=== PATIENT | male | born 1955 | race Caucasian/White ===

== ENCOUNTER 2019-06-26 12:51 | Inpatient (IN) | payer OTHER ==
[2019-06-26] MEDS ORDERED: RAPID SEQUENCE INTUBATION KIT NR ONE ×2 (12:54→12:56)
[2019-06-26] MEDS ORDERED: MIDAZOLAM 100MG/100ML DRIP - DO NOT USE FOR BILLING ONE (13:00)
[2019-06-26 13:10] VITALS: BMI 35.5
[2019-06-26] MEDS ORDERED: ETOMIDATE 40 MG/20 ML VIAL IVPUSH ONE (13:20)
[2019-06-26] MEDS ORDERED: ROCURONIUM BROMIDE 50 MG/5 ML VIAL IV ONE (13:21)
[2019-06-26] MEDS ORDERED: SUCCINYLCHOLINE CHLORIDE 200 MG/10 ML VIAL IVPUSH ONE (13:21)
[2019-06-26] MEDS: MIDAZOLAM 100 MG in SODIUM CHLORIDE 100 ML IVPB SCH (13:30)
[2019-06-26 13:40] LABS: BASO % 0.4 % (0-2.0); HEMATOCRIT 39.4 % (35.4-49); HEMOGLOBIN 12.6 GM/dL (11.7-16.9); MCH 23.4 pg (25.7-33.7); MCHC 31.9 g/dl (32.0-35.9); MEAN CELL VOLUME 73.3 fl (80-96); MEAN PLT VOLUME 8.5 fl (7.5-11.1); MONO % 5.5 % (3.8-10.2); NEUT % 83.1 % (42.8-82.8); PLATELET COUNT 330 K/MM3 (134-434); RBC 5.37 M/mm3 (4.00-5.60); RDW 15.6 % (11.9-15.9); WHITE BLOOD COUNT 7.2 K/mm3 (4.0-10.0)
[2019-06-26 13:49] LABS: INR 1.39 (0.83-1.09); PROTHROMBIN TIME (PATIENT) 16.4 SEC (9.7-13.0)
[2019-06-26 14:06] LABS: ALBUMIN 2.9 g/dl (3.4-5.0); ALK PHOS 109 U/L (45-117); ANION GAP 12 MMOL/L (8-16); BILIRUBIN,TOTAL 0.5 mg/dL (0.2-1); BLOOD UREA NITROGEN 14.2 mg/dL (7-18); CALCIUM 8.2 mg/dL (8.5-10.1); CHLORIDE 100 mmol/L (98-107); CO2 22 mmol/L (21-32); GLUCOSE,RANDOM 148 mg/dL (74-106); POTASSIUM 4.6 mmol/L (3.5-5.1); SGOT/AST 76 U/L (15-37); SGPT/ALT 51 U/L (13-61); SODIUM 134 mmol/L (136-145); TOT PROT 7.5 g/dl (6.4-8.2)
[2019-06-26 14:14] LABS: ACTIVATED PTT 31.8 SECONDS (25.2-36.5)
[2019-06-26] MEDS ORDERED: PROPOFOL 1,000,000 MCG/100 ML VIAL ONE (14:17)
[2019-06-26 14:54] LABS: ARTERIAL BLD GAS O2 SATURATION 96.7 % (95-98); ARTERIAL BLOOD GAS BASE EXCESS -4.1 mmol/L (-2-2); ARTERIAL BLOOD GAS PCO2 68.7 mmHg (35-45); ARTERIAL BLOOD GAS PO2 132 mmHg (80-100); CARBOXYHEMOGLOBIN 0.5 % (0-2)
[2019-06-26 14:57] LABS: ARTERIAL BLOOD GAS pH 7.19 (7.35-7.45)
[2019-06-26] MEDS ORDERED: VECURONIUM BROMIDE 100 MG/100 ML BAG IVPB SCH (15:00)
[2019-06-26] MEDS ORDERED: PROPOFOL 1,000,000 MCG/100 ML VIAL IVPB SCH (15:00)
[2019-06-26] MEDS ORDERED: ACETAMINOPHEN 650 MG SUPP.RECT PR PRN (15:47)
[2019-06-26] MEDS ORDERED: AZITHROMYCIN IVPB 500 MG/250 ML BAG IVPB ONE ×2 (17:01→18:09)
[2019-06-26 17:09] LABS: ARTERIAL BLD GAS O2 SATURATION 96.5 % (95-98); ARTERIAL BLOOD GAS BASE EXCESS -2.4 mmol/L (-2-2); ARTERIAL BLOOD GAS PO2 124 mmHg (80-100)
[2019-06-26 17:12] LABS: CARBOXYHEMOGLOBIN 0.5 % (0-2)
[2019-06-26] MEDS ORDERED: ACETAMINOPHEN 1000 MG/100 ML VIAL (NON FORMULARY) IVPB ONE (17:16)
[2019-06-26 17:18] LABS: ARTERIAL BLOOD GAS pH 7.17 (7.35-7.45)
[2019-06-26 17:18] LABS: LDH 679 U/L (87-246)
[2019-06-26 17:19] LABS: ARTERIAL BLOOD GAS PCO2 76.8 mmHg (35-45)
[2019-06-26] MEDS ORDERED: HEPARIN NA (PORCINE) 5,000 UNITS/ML 1ML VIAL ONE (18:09)
[2019-06-26] MEDS ORDERED: ACETAMINOPHEN INJECTION 100 ML IVPB ONE (18:09)
[2019-06-26] MEDS: HEPARIN NA (PORCINE) 5,000 UNITS/ML 1ML VIAL SQ SCH (18:18)
[2019-06-26 18:38] LABS: ARTERIAL BLD GAS O2 SATURATION 96.2 % (95-98); ARTERIAL BLOOD GAS BASE EXCESS -1.5 mmol/L (-2-2); ARTERIAL BLOOD GAS PCO2 67.1 mmHg (35-45); ARTERIAL BLOOD GAS PO2 110 mmHg (80-100); ARTERIAL BLOOD GAS pH 7.23 (7.35-7.45)
[2019-06-26] MEDS ORDERED: MIDAZOLAM IN 0.9 % SOD.CHLORID 1 MG/1 ML PLAST..BAG ONE (21:23)
[2019-06-26] MEDS ORDERED: CHLORHEXIDINE GLUCONATE 4% CLEANSER FOR DECOLONIZATION TP SCH (22:00)
[2019-06-26] MEDS ORDERED: MUPIROCIN 2% TOPICAL OINTMENT FOR DECOLONIZATION NS SCH (22:00)
[2019-06-27] MEDS ORDERED: HEPARIN NA (PORCINE) 5,000 UNITS/ML 1ML VIAL ONE ×2 (02:16→09:55)
[2019-06-27] MEDS: HEPARIN NA (PORCINE) 5,000 UNITS/ML 1ML VIAL SQ SCH ×2 (02:30→10:41)
[2019-06-27] MEDS ORDERED: PROPOFOL 1,000,000 MCG/100 ML VIAL ONE ×2 (03:26→10:04)
[2019-06-27] MEDS ORDERED: VECURONIUM BROMIDE 100 MG/100 ML BAG IVPB SCH (06:30)
[2019-06-27 06:35] LABS: ARTERIAL BLD GAS O2 SATURATION 96.9 % (95-98); ARTERIAL BLOOD GAS BASE EXCESS 0.8 mmol/L (-2-2); ARTERIAL BLOOD GAS PCO2 67.3 mmHg (35-45); ARTERIAL BLOOD GAS PO2 115 mmHg (80-100); ARTERIAL BLOOD GAS pH 7.27 (7.35-7.45)
[2019-06-27 06:44] LABS: ALLENS TEST POSITIVE
[2019-06-27 07:07] LABS: BASO % 0.4 % (0-2.0); HEMATOCRIT 34.4 % (35.4-49); HEMOGLOBIN 11.3 GM/dL (11.7-16.9); LYMPH % 13.3 % (8-40); MCH 24.5 pg (25.7-33.7); MCHC 32.8 g/dl (32.0-35.9); MEAN CELL VOLUME 74.7 fl (80-96); MEAN PLT VOLUME 8.8 fl (7.5-11.1); MONO % 5.9 % (3.8-10.2); NEUT % 80.4 % (42.8-82.8); PLATELET COUNT 333 K/MM3 (134-434); RDW 15.3 % (11.9-15.9); WHITE BLOOD COUNT 8.5 K/mm3 (4.0-10.0)
[2019-06-27 07:41] LABS: ALBUMIN 2.4 g/dl (3.4-5.0); BILIRUBIN,TOTAL 0.6 mg/dL (0.2-1); BLOOD UREA NITROGEN 19.5 mg/dL (7-18); CALCIUM 7.8 mg/dL (8.5-10.1); CREATININE 0.8 mg/dL (0.55-1.3); MAGNESIUM 3.3 mg/dL (1.8-2.4); PHOSPHOROUS 3.9 mg/dL (2.5-4.9); POTASSIUM 5.7 mmol/L (3.5-5.1); TOT PROT 6.7 g/dl (6.4-8.2)
[2019-06-27] MEDS ORDERED: INSULIN REGULAR HUMAN 100 UNITS/ML *VIAL IVPUSH ONE (08:10)
[2019-06-27] MEDS ORDERED: CALCIUM GLUCONATE 10% - 1,000 MG/10 ML VIAL IVPUSH ONE (08:10)
[2019-06-27] MEDS ORDERED: DEXTROSE 50%-WATER - 25 GM/50 ML VIAL IVPUSH ONE (08:10)
[2019-06-27] MEDS ORDERED: CALCIUM GLUCONATE 10% - 1,000 MG/10 ML VIAL ONE (08:38)
[2019-06-27] MEDS ORDERED: DEXTROSE 50%-WATER 25 GM/50 ML DISP.SYRIN ONE (08:39)
[2019-06-27] MEDS ORDERED: INSULIN REGULAR HUMAN 100 UNITS/ML *VIAL ONE (08:39)
[2019-06-27] MEDS ORDERED: PANTOPRAZOLE SODIUM 40 MG VIAL ONE (09:55)
[2019-06-27] MEDS ORDERED: PANTOPRAZOLE SODIUM 40 MG VIAL IVPUSH SCH (10:00)
[2019-06-27] MEDS ORDERED: MIDAZOLAM 100MG/100ML DRIP - DO NOT USE FOR BILLING ONE (10:04)
[2019-06-27] MEDS ORDERED: PIPERACILLIN/TAZOB 3.375 GM 3.375 GM in DEXTROSE 5%-WATER - 50 ML IVPB SCH (11:30)
[2019-06-27] MEDS: MIDAZOLAM 100 MG in SODIUM CHLORIDE 100 ML IVPB SCH (11:30)
[2019-06-27] MEDS ORDERED: HYDROXYCHLOROQUINE SO4 200 MG TABLET (FP) PO SCH (12:00)
[2019-06-27] MEDS ORDERED: AZITHROMYCIN IVPB 500 MG in DEXTROSE 5%-WATER - 250 ML IVPB SCH (12:00)
[2019-06-27 12:04] LABS: BLOOD UREA NITROGEN 17.7 mg/dL (7-18); CALCIUM 8.3 mg/dL (8.5-10.1); CREATININE 0.8 mg/dL (0.55-1.3); POTASSIUM 5.6 mmol/L (3.5-5.1)
[2019-06-27 12:51] VITALS: BP 122/85; PULSE 92; TEMP 98.2
[2019-06-28] MEDS ORDERED: HYDROXYCHLOROQUINE SO4 200 MG TABLET (FP) PO SCH (10:00)
== END 2019-06-27 14:00 | disposition short-term general hospital (02) | DRG 137 ==
LOC: JER 12:51 → JERBED 15:03
PROVIDERS: ADMIT Internal Medicine Pulmonary Disease; ATTEND Internal Medicine Pulmonary Disease
PROC: 5A1945Z Respiratory Ventilation, 24-96 Consecutive Hours (ICD-10-PCS; principal; 2019-06-26)
PROC: 0BH17EZ Insertion of Endotracheal Airway into Trachea, Via Natural or Artificial Opening (ICD-10-PCS; 2019-06-26)
DX: U07.1 COVID-19 (principal); J96.01 Acute respiratory failure with hypoxia; J12.89 Other viral pneumonia; E87.2 Acidosis
CPT/HCPCS: 36415; 36600; 71045-TC-FY; 80048; 80053; 82375; 82550; 82553; 82803; 83050; 83605; 83615; 83735; 84100; 84484; 85025; 85610; 85730; 93005; 93010; 99291; J0131; J1644; U0002

== ENCOUNTER 2022-01-04 04:16 | Day surgery (SDC) | payer OTHER ==
[2022-01-02 14:53] VITALS: BMI 32.1
[~2022-01-04 04:16] MED LIST: ACETAMINOPHEN 325 MG TABLET (FP) PO PRN; BSS (NA/CA/MG/K) BALANCED SALT SOLUTION OPHTH SOLN 15 ML BOTTLE OS ONE; CHONDROITIN SU A/HYALUR SOD 1 KIT IO ONE; CYCLOPENTOLATE HCL 1% OPHTH SOLN 2 ML BOTTLE OP SCH; KETOROLAC TROMETHAMINE 0.5% EYE DROP 1 DROP DROPS OP SCH; LIDOCAINE HCL 1% PRESERVATIVE FREE - 30ML VIAL IO ONE; OFLOXACIN 0.3% OPHTHALMIC SOLUTION 5 ML BOTTLE OP SCH; PHENYLEPHRINE 2.5% OPHTH SOLN 15 ML BOTTLE OP SCH; PHENYLEPHRINE/KETOROLAC 4 ML VIAL IO ONE; TROPICAMIDE 1% OPHTH SOLN 15 ML BOTTLE OP SCH
[2022-01-04] MEDS ORDERED: TETRACAINE 0.5% OPHTH SOLN 2 ML BOTTLE ONE (07:19)
[2022-01-04] MEDS ORDERED: POVIDONE-IODINE 5% OPHTHALMIC PREP 30 ML SOLUTION ONE (07:19)
[2022-01-04] MEDS ORDERED: PHENYLEPHRINE/KETOROLAC 4 ML VIAL IO ONE ×2 (07:19→10:26)
[2022-01-04] MEDS ORDERED: LIDOCAINE HCL/PF 1% SDV 5ML VIAL ONE (07:19)
[2022-01-04] MEDS ORDERED: PHENYLEPHRINE 2.5% OPHTH SOLN 15 ML BOTTLE ONE (08:31)
[2022-01-04] MEDS ORDERED: KETOROLAC TROMETHAMINE 0.5% EYE DROP 1 DROP DROPS ONE (08:32)
[2022-01-04] MEDS ORDERED: OFLOXACIN 0.3% OPHTHALMIC SOLUTION 5 ML BOTTLE ONE (08:32)
[2022-01-04] MEDS ORDERED: CYCLOPENTOLATE HCL 1% OPHTH SOLN 2 ML BOTTLE ONE (08:32)
[2022-01-04] MEDS ORDERED: TROPICAMIDE 1% OPHTH SOLN 15 ML BOTTLE ONE (08:32)
[2022-01-04] MEDS ORDERED: PHENYLEPHRINE 2.5% OPHTH SOLN 15 ML BOTTLE OS ONE ×3 (08:45→09:00)
[2022-01-04] MEDS ORDERED: KETOROLAC TROMETHAMINE 0.5% EYE DROP 1 DROP DROPS OS ONE ×3 (08:45→09:00)
[2022-01-04] MEDS ORDERED: CYCLOPENTOLATE HCL 1% OPHTH SOLN 2 ML BOTTLE OS ONE ×3 (08:45→09:00)
[2022-01-04] MEDS ORDERED: OFLOXACIN 0.3% OPHTHALMIC SOLUTION 5 ML BOTTLE OS ONE ×3 (08:45→09:00)
[2022-01-04] MEDS ORDERED: TROPICAMIDE 1% OPHTH SOLN 15 ML BOTTLE OS ONE ×3 (08:45→09:00)
[2022-01-04 08:54] VITALS: RESP 18
[2022-01-04] MEDS ORDERED: MIDAZOLAM HCL 2 MG/2 ML SINGLE DOSE VIAL ONE (10:05)
[2022-01-04] MEDS ORDERED: TETRACAINE 0.5% HCL 0.6ML DROPPER.BOTTLE OS ONE (10:10)
[2022-01-04] MEDS ORDERED: POVIDONE-IODINE 5% OPHTHALMIC PREP 30 ML SOLUTION OS ONE (10:13)
[2022-01-04] MEDS ORDERED: ONDANSETRON 4 MG/2 ML VIAL ONE (10:14)
[2022-01-04] MEDS ORDERED: BSS (NA/CA/MG/K) BALANCED SALT SOLUTION OPHTH SOLN 15 ML BOTTLE OS ONE (10:20)
[2022-01-04] MEDS ORDERED: LIDOCAINE HCL 1% PRESERVATIVE FREE - 30ML VIAL IO ONE ×2 (10:21)
[2022-01-04] MEDS ORDERED: CHONDROITIN SU A/HYALUR SOD 1 KIT IO ONE (10:22)
[2022-01-04 12:24] VITALS: PULSE 61
[2022-01-04 12:30] VITALS: BP 142/59; TEMP 98.2
== END 2022-01-04 12:00 | disposition home or self-care (01) ==
LOC: JASU-SURG 04:16
PROVIDERS: ATTEND Ophthalmology
PROC: 08RK3JZ Replacement of Left Lens with Synthetic Substitute, Percutaneous Approach (ICD-10-PCS; principal; 2022-01-04 10:07)
DX: H26.9 Unspecified cataract (principal)
CPT/HCPCS: 82962; J1097; V2632

== ENCOUNTER 2023-10-14 19:33 | Emergency (ER) | payer OTHER ==
[2023-10-14 19:41] VITALS: BMI 29.8
[2023-10-14] MEDS ORDERED: ACETAMINOPHEN 500 MG TABLET (FP) ONE (20:43)
[2023-10-14] MEDS: ACETAMINOPHEN 500 MG TABLET (FP) PO ONE (20:44)
[2023-10-14 20:49] LABS: BASO % 0.7 % (0-2.0); EOS % 0.1 % (0-4.5); HEMATOCRIT 31.3 % (35.4-49); HEMOGLOBIN 9.7 GM/dL (11.7-16.9); LYMPH % 19.6 % (8-40); MCHC 31.1 g/dl (32.0-35.9); MEAN CELL VOLUME 61.6 fl (80-96); MEAN PLT VOLUME 8.1 fl (7.5-11.1); MONO % 10.8 % (3.8-10.2); NEUT % 68.8 % (42.8-82.8); PLATELET COUNT 275 10^3/uL (134-434); RBC 5.09 M/mm3 (4.00-5.60); RDW 20.8 % (11.9-15.9); WHITE BLOOD COUNT 5.4 K/mm3 (4.0-10.0)
[2023-10-14 20:51] LABS: MCH 19.2 pg (25.7-33.7)
[2023-10-14 20:52] LABS: EPI CELLS 7 /uL (0-25.1); HYALINE CASTS 0 /uL (0-3.1); URINE APPEARANCE CLEAR; URINE BACTERIA 7 /uL (0-1359); URINE BILIRUBIN NEGATIVE (NEGATIVE); URINE COLOR YELLOW; URINE GLUCOSE (UA) NEGATIVE (NEGATIVE); URINE KETONE NEGATIVE (NEGATIVE); URINE LEUK ESTERASE NEGATIVE (NEGATIVE); URINE NITRITE NEGATIVE (NEGATIVE); URINE PROTEIN 2+ (NEGATIVE); URINE RBC 9 /uL (0-23.9); URINE WBC 7 /uL (0-25.8)
[2023-10-14 21:14] LABS: POTASSIUM 4.2 mmol/L (3.5-5.1)
[2023-10-14 21:16] LABS: ALBUMIN 3.5 g/dl (3.4-5.0); BLOOD UREA NITROGEN 11.8 mg/dL (7-18); CALCIUM 8.5 mg/dL (8.5-10.1)
[2023-10-14 21:21] LABS: BILIRUBIN,TOTAL 0.6 mg/dL (0.2-1); TOT PROT 7.1 g/dl (6.4-8.2)
[2023-10-14 21:30] LABS: ANISOCYTOSIS 2+; MACROCYTOSIS 0; OVALOCYTE 1+
[2023-10-14 21:50] VITALS: BP 114/63; PULSE 93; RESP 18; TEMP 101
[2023-10-14] MEDS ORDERED: IBUPROFEN 600 MG TABLET (FP) PO ONE (21:51)
[2023-10-14] MEDS: IBUPROFEN 600 MG TABLET (FP) PO ONE (21:52)
== END 2023-10-14 22:54 | disposition home or self-care (01) ==
LOC: JERFT 19:33 → JER 19:33 → JERFT 22:54
DX: R50.9 Fever, unspecified (principal); B34.9 Viral infection, unspecified; Z20.822 Contact with and (suspected) exposure to COVID-19
CPT/HCPCS: 0241U-QW; 36415; 71046-TC-FY; 80053; 81003; 85025; 87086; 99284-25

== ENCOUNTER 2023-10-18 12:12 | Inpatient (IN) | payer OTHER ==
[2023-10-18] MEDS ORDERED: SIMETHICONE 40 MG/0.6 ML BOTTLE PO PRN (13:38)
[2023-10-18] MEDS: MAG HYDROX/AL HYDROX/SIMETH 30 ML UNIT-DOSE CUP PO ONE (13:58)
[2023-10-18] MEDS: SODIUM CHLORIDE 0.9% 500 ML INFUS.BAG IV ONE (14:22)
[2023-10-18 14:56] LABS: HEMATOCRIT 27.3 % (35.4-49); HEMOGLOBIN 8.4 GM/dL (11.7-16.9); MCH 18.7 pg (25.7-33.7); MCHC 30.7 g/dl (32.0-35.9); MEAN CELL VOLUME 60.9 fl (80-96); MEAN PLT VOLUME 8.2 fl (7.5-11.1); PLATELET COUNT 78 10^3/uL (134-434); RBC 4.47 M/mm3 (4.00-5.60); RDW 22.1 % (11.9-15.9)
[2023-10-18 15:21] LABS: ANISOCYTOSIS 3+; MACROCYTOSIS 0
[2023-10-18 15:28] LABS: BLOOD UREA NITROGEN 11.9 mg/dL (7-18); CALCIUM 7.4 mg/dL (8.5-10.1); CHLORIDE 108 mmol/L (98-107); CO2 22 mmol/L (21-32); CREATININE 0.8 mg/dL (0.55-1.3); GLUCOSE,RANDOM 105 mg/dL (74-106); SODIUM 138 mmol/L (136-145)
[2023-10-18 15:29] LABS: ALBUMIN 2.7 g/dl (3.4-5.0); ALK PHOS 112 U/L (45-117); BILIRUBIN,TOTAL 0.3 mg/dL (0.2-1); SGOT/AST 95 U/L (15-37); SGPT/ALT 67 U/L (13-61); TOT PROT 5.9 g/dl (6.4-8.2)
[2023-10-18 16:58] LABS: POTASSIUM 4.4 mmol/L (3.5-5.1)
[2023-10-18 17:14] LABS: HIV INTERPRETATION NEGATIVE (NEGATIVE)
[2023-10-18] MEDS ORDERED: METOPROLOL TARTRATE 5 MG/5 ML VIAL IVPUSH PRN (23:36)
[2023-10-18] MEDS: LACTATED RINGERS SOLUTION 1,000 ML/1,000 ML INFUS.BAG IV SCH ×2 (23:38)
[2023-10-18] MEDS ORDERED: PANTOPRAZOLE SODIUM 40 MG/100 ML BAG IVPB ONE (23:39)
[2023-10-18] MEDS: PANTOPRAZOLE SODIUM 40 MG VIAL IVPUSH SCH (23:42)
[2023-10-19] MEDS: ceFAZolin SODIUM 1 GM VIAL IVPB ONE
[2023-10-19] MEDS: BUPIVACAINE HCL/PF 0.25% (2.5MG/ML) 10 ML VIAL IJ ONE
[2023-10-19] MEDS ORDERED: PIPERACILLIN/TAZOB 4.5 GM 4.5 GM/100 ML BAG IVPB ONE (00:01)
[2023-10-19] MEDS: PIPERACILLIN/TAZOB 4.5 GM 4.5 GM in DEXTROSE 5%-WATER 100 ML IVPB ONE (00:04)
[2023-10-19] MEDS ORDERED: ACETAMINOPHEN 1000 MG/100 ML BAG IVPB PRN (01:37)
[2023-10-19 07:48] LABS: BASO % 1.3 % (0-2.0); EOS % 0.8 % (0-4.5); HEMATOCRIT 28.1 % (35.4-49); HEMOGLOBIN 8.8 GM/dL (11.7-16.9); LYMPH % 57.6 % (8-40); MCHC 31.2 g/dl (32.0-35.9); MEAN CELL VOLUME 60.9 fl (80-96); MEAN PLT VOLUME 8.2 fl (7.5-11.1); MONO % 12.2 % (3.8-10.2); NEUT % 28.1 % (42.8-82.8); PLATELET COUNT 66 10^3/uL (134-434); RBC 4.61 M/mm3 (4.00-5.60); RDW 21.9 % (11.9-15.9); WHITE BLOOD COUNT 4.9 K/mm3 (4.0-10.0)
[2023-10-19 08:03] LABS: POTASSIUM 4.3 mmol/L (3.5-5.1)
[2023-10-19 08:07] LABS: CALCIUM 8.3 mg/dL (8.5-10.1)
[2023-10-19 08:08] LABS: BLOOD UREA NITROGEN 9.5 mg/dL (7-18)
[2023-10-19 08:11] LABS: CREATININE 0.9 mg/dL (0.55-1.3)
[2023-10-19 08:12] LABS: BILIRUBIN,TOTAL 0.5 mg/dL (0.2-1)
[2023-10-19 08:13] LABS: IRON SERUM 23 ug/dL (50-175); TOTAL IRON BINDING CAPACITY 371 ug/dL (250-450)
[2023-10-19 08:17] LABS: ALBUMIN 2.8 g/dl (3.4-5.0)
[2023-10-19] MEDS: IRON SUCROSE INJECTION 300 MG in SODIUM CHLORIDE 235 ML IVPB ONE (11:10)
[2023-10-19] MEDS ORDERED: BUPIVACAINE HCL/PF 0.25% (2.5MG/ML) 10 ML VIAL ONE (11:20)
[2023-10-19] MEDS ORDERED: HEPARIN NA (PORCINE) 5,000 UNITS/ML 1ML VIAL ONE (11:20)
[2023-10-19 12:09] VITALS: BMI 32.3
[2023-10-19 15:17] LABS: PLATELET ESTIMATE DECREASED
[2023-10-19 16:15] LABS: ANISOCYTOSIS 2+; MACROCYTOSIS 0
[2023-10-19] MEDS: INSULIN ASPART SLIDING SCALE (NOVOLOG) 1 VIAL SQ SCH (16:47)
[2023-10-19] MEDS: LACTATED RINGERS SOLUTION 1,000 ML/1,000 ML INFUS.BAG IV SCH (20:50)
[2023-10-20 08:56] LABS: INR 1.15 (0.83-1.09); PROTHROMBIN TIME (PATIENT) 13.2 SEC (9.7-13.0)
[2023-10-20 09:08] LABS: HEMATOCRIT 31.6 % (35.4-49); HEMOGLOBIN 9.8 GM/dL (11.7-16.9); MEAN CELL VOLUME 61.8 fl (80-96); MEAN PLT VOLUME 8.3 fl (7.5-11.1); RBC 5.12 M/mm3 (4.00-5.60); RDW 21.7 % (11.9-15.9)
[2023-10-20 09:12] LABS: MCH 19.1 pg (25.7-33.7)
[2023-10-20 09:18] LABS: POTASSIUM 3.9 mmol/L (3.5-5.1)
[2023-10-20 09:22] LABS: BLOOD UREA NITROGEN 7.1 mg/dL (7-18); CALCIUM 8.7 mg/dL (8.5-10.1)
[2023-10-20 09:26] LABS: CREATININE 0.8 mg/dL (0.55-1.3)
[2023-10-20 10:14] LABS: ANISOCYTOSIS 2+; MACROCYTOSIS 0
[2023-10-20 10:16] LABS: PLATELET COUNT 88 10^3/uL (134-434); PLATELET ESTIMATE DECREASED
[2023-10-20 11:53] LABS: BILIRUBIN,DIRECT 0.2 mg/dL (0.0-0.2)
[2023-10-20 11:55] LABS: BILIRUBIN,TOTAL 0.7 mg/dL (0.2-1); TOT PROT 6.7 g/dl (6.4-8.2)
[2023-10-20] MEDS: CEFTRIAXONE 2 GM in DEXTROSE 5%-WATER - 50 ML IVPB ONE (12:24)
[2023-10-20] MEDS ORDERED: LACTATED RINGERS SOLUTION 1,000 ML/1,000 ML INFUS.BAG IV SCH (12:40)
[2023-10-20] MEDS ORDERED: BUPIVACAINE HCL/PF 0.25% (2.5MG/ML) 10 ML VIAL ONE (14:36)
[2023-10-20] MEDS ORDERED: LIDOCAINE HCL/PF 2% SDV 5ML VIAL ONE (14:55)
[2023-10-20] MEDS ORDERED: ROCURONIUM BROMIDE 50 MG/5 ML SYRINGE ONE (14:55)
[2023-10-20] MEDS ORDERED: PROPOFOL 20 ML ONE ×2 (14:55→16:40)
[2023-10-20] MEDS ORDERED: DEXAMETHASONE SOD PHOSPHATE 4 MG/1 ML VIAL ONE (14:55)
[2023-10-20] MEDS ORDERED: MIDAZOLAM HCL 2 MG/2 ML SINGLE DOSE VIAL ONE (14:55)
[2023-10-20] MEDS ORDERED: ONDANSETRON 4 MG/2 ML VIAL ONE (14:55)
[2023-10-20] MEDS ORDERED: TRANEXAMIC ACID 1000 MG/10 ML VIAL ONE (16:02)
[2023-10-20] MEDS: BUPIVACAINE HCL/PF 0.25% (2.5MG/ML) 10 ML VIAL IJ ONE (16:07)
[2023-10-20] MEDS ORDERED: HYDROmorphone HCl 2 MG/ML VIAL ONE (16:11)
[2023-10-20] MEDS ORDERED: SUGAMMADEX SODIUM 200 MG/2 ML VIAL ONE ×2 (16:38→16:54)
[2023-10-20] MEDS ORDERED: oxyCODONE HCL 5 MG TABLET PO PRN ×2 (17:15→17:16)
[2023-10-20] MEDS ORDERED: ACETAMINOPHEN INJECTION 100 ML IVPB ONE (17:42)
[2023-10-20] MEDS: ACETAMINOPHEN 1000 MG/100 ML BAG IVPB SCH (17:42)
[2023-10-20] MEDS: LACTATED RINGERS SOLUTION 1,000 ML/1,000 ML INFUS.BAG IV SCH (18:50)
[2023-10-20] MEDS: LACTATED RINGERS SOLUTION 1,000 ML IV SCH (20:54)
[2023-10-21] MEDS: INSULIN ASPART SLIDING SCALE (NOVOLOG) 1 VIAL SQ SCH (06:09)
[2023-10-21 09:06] LABS: BASO % 0.1 % (0-2.0); HEMATOCRIT 29.4 % (35.4-49); HEMOGLOBIN 9.3 GM/dL (11.7-16.9); LYMPH % 25.2 % (8-40); MCH 19.3 pg (25.7-33.7); MCHC 31.6 g/dl (32.0-35.9); MEAN CELL VOLUME 61.2 fl (80-96); MEAN PLT VOLUME 8.9 fl (7.5-11.1); MONO % 7.5 % (3.8-10.2); NEUT % 67.2 % (42.8-82.8); PLATELET COUNT 123 10^3/uL (134-434); RDW 21.7 % (11.9-15.9); WHITE BLOOD COUNT 4.6 K/mm3 (4.0-10.0)
[2023-10-21 09:08] LABS: POTASSIUM 4.3 mmol/L (3.5-5.1)
[2023-10-21 09:21] LABS: BLOOD UREA NITROGEN 8.7 mg/dL (7-18); CALCIUM 8.4 mg/dL (8.5-10.1)
[2023-10-21 09:25] LABS: CREATININE 0.8 mg/dL (0.55-1.3)
[2023-10-21] MEDS: PANTOPRAZOLE SODIUM 40 MG VIAL IVPUSH SCH (09:30)
[2023-10-21] MEDS: CEFTRIAXONE 2 GM in DEXTROSE 5%-WATER 100 ML IVPB ONE (11:02)
[2023-10-21] MEDS: AMOX TR/POT CLAV 875MG/125MG TABLETS (FP) PO SCH (17:07)
[2023-10-21] MEDS: FE POLYSAC/CYANOCOBAL/FA COMBO CAPSULE PO SCH (17:39)
[2023-10-21] MEDS: DOCUSATE SODIUM 100 MG CAPSULE (FP) PO SCH (22:12)
[2023-10-21] MEDS: POLYETHYLENE GLYCOL (HEALTHYLAX) 3350 17 GM PACKET PO SCH (22:12)
[2023-10-22] MEDS: TAMSULOSIN HCL 0.4 MG CAP PO SCH (08:30)
[2023-10-22 08:34] VITALS: RESP 20
[2023-10-22] MEDS: PANTOPRAZOLE 40 MG TABLET PO SCH (09:52)
[2023-10-22 10:16] LABS: BASO % 0.4 % (0-2.0); EOS % 0.2 % (0-4.5); HEMATOCRIT 32.3 % (35.4-49); HEMOGLOBIN 9.8 GM/dL (11.7-16.9); MCHC 30.4 g/dl (32.0-35.9); MEAN CELL VOLUME 63.4 fl (80-96); MEAN PLT VOLUME 8.8 fl (7.5-11.1); MONO % 7.2 % (3.8-10.2); NEUT % 52.2 % (42.8-82.8); PLATELET COUNT 178 10^3/uL (134-434); WHITE BLOOD COUNT 8.1 K/mm3 (4.0-10.0)
[2023-10-22 10:21] LABS: MCH 19.3 pg (25.7-33.7)
[2023-10-22 10:33] LABS: BLOOD UREA NITROGEN 10.3 mg/dL (7-18); CALCIUM 8.7 mg/dL (8.5-10.1)
[2023-10-22 11:30] LABS: ANISOCYTOSIS 2+; MACROCYTOSIS 0; OVALOCYTE 1+
[2023-10-22] MEDS: IRON SUCROSE INJECTION 200 MG in SODIUM CHLORIDE 100 ML IVPB ONE (14:02)
[2023-10-22 16:09] LABS: FREE KAPPA,SERUM 55.7 mg/L (3.3-19.4)
[2023-10-22 16:51] VITALS: BP 145/65; PULSE 62; TEMP 98.4
[2023-10-23] MEDS ORDERED: IRON SUCROSE INJECTION 200 MG in SODIUM CHLORIDE 100 ML IVPB ONE (10:00)
== END 2023-10-22 16:40 | disposition home or self-care (01) | DRG 419 ==
LOC: JER 12:12 → JERBED 23:32 → J6S 10-19 08:58
PROVIDERS: ADMIT Internal Medicine; ATTEND Internal Medicine
PROC: 0FT44ZZ Resection of Gallbladder, Percutaneous Endoscopic Approach (ICD-10-PCS; principal; 2023-10-20 14:30)
DX: K81.0 Acute cholecystitis (principal); D69.6 Thrombocytopenia, unspecified; D50.9 Iron deficiency anemia, unspecified; R74.01 Elevation of levels of liver transaminase levels; I10 Essential (primary) hypertension; N40.0 Benign prostatic hyperplasia without lower urinary tract symptoms; E11.9 Type 2 diabetes mellitus without complications; E83.51 Hypocalcemia; E66.9 Obesity, unspecified; Z68.32 Body mass index [BMI] 32.0-32.9, adult; E78.5 Hyperlipidemia, unspecified
CPT/HCPCS: 0241U-QW; 36415; 74177-TC; 76705-TC; 80048; 80053; 80076; 82272; 82728; 82930; 82962; 83010; 83540; 83550; 83615; 83883; 84155; 84165; 84439; 84443; 85025; 85045; 85610; 86618; 86803; 86850; 86900; 86901; 87040; 87207; 87389; 87798; 88304-TC; 93005; 93010; 94760; 99285-25; J0131; J1644; J1756; Q9967

== ENCOUNTER 2023-11-09 14:42 | Emergency (ER) | payer OTHER ==
[2023-11-09 15:16] VITALS: BP 132/75; PULSE 67; RESP 18; TEMP 98; BMI 30.1
[2023-11-09] MEDS ORDERED: TETANUS AND DIPHTHERIA TOXOID 0.5 ML DISP.SYRIN IM ONE (17:23)
[2023-11-09] MEDS ORDERED: DIPHTH,PERTUSS(ACELL),TET 0.5 ML DISP.SYRIN IM ONE (17:39)
[2023-11-09] MEDS ORDERED: BACITRACIN ZINC 15 GM TUBE TOPICAL OINTMENT TP ONE (18:43)
[2023-11-09] MEDS: DIPHTH,PERTUSS(ACELL),TET 0.5 ML DISP.SYRIN IM ONE (18:45)
[2023-11-09] MEDS ORDERED: BACITRACIN ZINC 15 GM TUBE TOPICAL OINTMENT ONE (18:46)
[2023-11-09] MEDS ORDERED: AMOX TR/POT CLAV 875MG/125MG TABLETS (FP) ONE (18:46)
[2023-11-09] MEDS: AMOX TR/POT CLAV 875MG/125MG TABLETS (FP) PO ONE (18:48)
== END 2023-11-09 19:47 | disposition home or self-care (01) ==
LOC: JERFT 14:42
PROC: 3E0234Z Introduction of Serum, Toxoid and Vaccine into Muscle, Percutaneous Approach (ICD-10-PCS; principal; 2023-11-09)
DX: S91.112A Laceration without foreign body of left great toe without damage to nail, initial encounter (principal); W20.8XXA Other cause of strike by thrown, projected or falling object, initial encounter; Z23 Encounter for immunization
CPT/HCPCS: 73630-TC-LT; 90471; 90715; 99284-25